=== PATIENT | male | born 1975 | race Caucasian/White ===

== ENCOUNTER 2023-02-16 12:59 | Inpatient (IN) | payer OTHER ==
[2023-02-16 13:18] VITALS: BMI 21.8
[2023-02-16] MEDS ORDERED: NICOTINE 10 MG CARTRIDGE (INHALER) IH PRN (16:23)
[2023-02-16] MEDS ORDERED: guaiFENesin 600 MG TABLET.ER (FP) PO PRN (16:23)
[2023-02-16] MEDS ORDERED: MAG HYDROX/AL HYDROX/SIMETH 30 ML UNIT-DOSE CUP PO PRN (16:23)
[2023-02-16] MEDS ORDERED: LOPERAMIDE HCL 2 MG CAPSULE PO PRN (16:23)
[2023-02-16] MEDS ORDERED: DICYCLOMINE HCL 10 MG CAPSULE PO PRN (16:23)
[2023-02-16] MEDS ORDERED: BENZONATATE 200 MG CAPSULE PO PRN (16:23)
[2023-02-16] MEDS ORDERED: IBUPROFEN 400 MG TABLET (FP) PO PRN (16:23)
[2023-02-16] MEDS ORDERED: AMMONIUM LACTATE 12% LOTION 225 GM BOTTLE TP PRN (16:23)
[2023-02-16] MEDS ORDERED: NALOXONE HCL (KLOXXADO) 8 MG SPRAY NS PRN (16:23)
[2023-02-16] MEDS ORDERED: POLYETHYLENE GLYCOL (HEALTHYLAX) 3350 17 GM PACKET PO PRN (16:23)
[2023-02-16] MEDS ORDERED: BENZOCAINE/MENTHOL (CHLORASEPTIC ) LOZENGE MM PRN (16:23)
[2023-02-16] MEDS ORDERED: ONDANSETRON *ODT* 4 MG TABLET SL PRN (16:23)
[2023-02-16] MEDS ORDERED: MAGNESIUM HYDROX 2400MG/30ML ORAL SUSPENSION 30 ML CUP PO PRN (16:23)
[2023-02-16] MEDS ORDERED: BISMUTH SUBSALICYLATE 524 MG/30 ML PO PRN (16:23)
[2023-02-16] MEDS ORDERED: COLLOIDAL OATMEAL 1 BAR EACH TP PRN (16:23)
[2023-02-16] MEDS ORDERED: NALOXONE HCL 0.4 MG/ML VIAL IM PRN (16:23)
[2023-02-16] MEDS: diazePAM 5 MG TABLET PO SCH ×2 (18:00→23:00)
[2023-02-16] MEDS: NICOTINE 21 MG/24 HOURS TOPICAL PATCH TD SCH (19:04)
[2023-02-16] MEDS: NICOTINE POLACRILEX 2 MG GUM BUC PRN ×2 (19:05→22:55)
[2023-02-16] MEDS: IBUPROFEN 600 MG TABLET (FP) PO PRN (19:07)
[2023-02-16] MEDS: THIAMINE HCL 100 MG TABLET (FP) PO SCH (22:54)
[2023-02-16] MEDS: MELATONIN 5 MG TABLETS PO SCH (22:54)
[2023-02-16] MEDS: METHOCARBAMOL 500 MG TABLET PO PRN (22:57)
[2023-02-17] MEDS: diazePAM 5 MG TABLET PO SCH ×4 (05:39→22:55)
[2023-02-17] MEDS: NICOTINE POLACRILEX 2 MG GUM BUC PRN ×2 (05:45→18:24)
[2023-02-17] MEDS: PRENATAL VITAMINS W/ FOLIC ACID TABLET (FP) PO SCH (10:03)
[2023-02-17] MEDS: NICOTINE 21 MG/24 HOURS TOPICAL PATCH TD SCH (10:03)
[2023-02-17] MEDS ORDERED: methaDONE HCL 10 MG TABLET (FOR DETOX USE ONLY) PO SCH (10:15)
[2023-02-17 11:42] LABS: POTASSIUM 4.9 mmol/L (3.5-5.1)
[2023-02-17 11:45] LABS: HEMATOCRIT 37.5 % (35.4-49); MCH 31.5 pg (25.7-33.7); MCHC 34.7 g/dl (32.0-35.9); MEAN CELL VOLUME 90.6 fl (80-96); MEAN PLT VOLUME 8.5 fl (7.5-11.1); PLATELET COUNT 278 10^3/uL (134-434); RBC 4.14 M/mm3 (4.00-5.60); RDW 12.5 % (11.9-15.9); WHITE BLOOD COUNT 4.9 K/mm3 (4.0-10.0)
[2023-02-17 11:54] LABS: ALBUMIN 3.9 g/dl (3.4-5.0); BLOOD UREA NITROGEN 16.6 mg/dL (7-18); CALCIUM 9.8 mg/dL (8.5-10.1)
[2023-02-17 11:58] LABS: CREATININE 0.9 mg/dL (0.55-1.3)
[2023-02-17 12:01] LABS: BILIRUBIN,TOTAL 0.5 mg/dL (0.2-1)
[2023-02-17] MEDS: diazePAM 5 MG TABLET PO PRN ×2 (13:07→20:03)
[2023-02-17] MEDS: THIAMINE HCL 100 MG TABLET (FP) PO SCH (22:54)
[2023-02-17] MEDS: MELATONIN 5 MG TABLETS PO SCH (22:54)
[2023-02-18] MEDS: diazePAM 5 MG TABLET PO PRN ×4 (01:10→22:16)
[2023-02-18] MEDS: IBUPROFEN 600 MG TABLET (FP) PO PRN ×2 (01:10→11:37)
[2023-02-18] MEDS ORDERED: PATIENT'S OWN MEDICATION (NON-FORMULARY) (Methadone Hcl [Methadone Hcl] 10 MG/ML Oral.Conc PO SCH (06:00)
[2023-02-18] MEDS: diazePAM 5 MG TABLET PO SCH ×3 (06:27→22:18)
[2023-02-18] MEDS: NICOTINE POLACRILEX 2 MG GUM BUC PRN ×3 (08:42→15:31)
[2023-02-18] MEDS: NICOTINE 21 MG/24 HOURS TOPICAL PATCH TD SCH (10:01)
[2023-02-18] MEDS: PRENATAL VITAMINS W/ FOLIC ACID TABLET (FP) PO SCH (10:01)
[2023-02-18] MEDS: METHOCARBAMOL 500 MG TABLET PO PRN (11:37)
[2023-02-18] MEDS: MELATONIN 5 MG TABLETS PO SCH (22:14)
[2023-02-18] MEDS: THIAMINE HCL 100 MG TABLET (FP) PO SCH (22:17)
[2023-02-19] MEDS: IBUPROFEN 600 MG TABLET (FP) PO PRN (05:13)
[2023-02-19] MEDS: METHOCARBAMOL 500 MG TABLET PO PRN (05:13)
[2023-02-19] MEDS ORDERED: diazePAM 5 MG TABLET PO SCH (06:00)
[2023-02-19] MEDS: diazePAM 5 MG TABLET PO PRN (06:59)
[2023-02-19] MEDS: NICOTINE POLACRILEX 2 MG GUM BUC PRN (08:53)
[2023-02-19 10:02] VITALS: BP 104/54; PULSE 54; RESP 18; TEMP 97.3
[2023-02-19] MEDS: NICOTINE 21 MG/24 HOURS TOPICAL PATCH TD SCH (10:34)
[2023-02-19] MEDS: PRENATAL VITAMINS W/ FOLIC ACID TABLET (FP) PO SCH (10:34)
[2023-02-20] MEDS ORDERED: diazePAM 5 MG TABLET PO ONE (06:00)
== END 2023-02-19 10:26 | disposition home or self-care (01) | DRG 773 ==
LOC: YASAS 12:59 → Y6N 16:42
PROVIDERS: ADMIT Allergy & Immunology; ATTEND Surgery
PROC: HZ2ZZZZ Detoxification Services for Substance Abuse Treatment (ICD-10-PCS; principal; 2023-02-16)
DX: F13.230 Sedative, hypnotic or anxiolytic dependence with withdrawal, uncomplicated (principal); F11.20 Opioid dependence, uncomplicated; F12.20 Cannabis dependence, uncomplicated; F17.210 Nicotine dependence, cigarettes, uncomplicated; F19.282 Other psychoactive substance dependence with psychoactive substance-induced sleep disorder; F41.8 Other specified anxiety disorders; S83.91XD Sprain of unspecified site of right knee, subsequent encounter; W19.XXXD Unspecified fall, subsequent encounter; Z88.6 Allergy status to analgesic agent; Z91.013 Allergy to seafood; Z56.0 Unemployment, unspecified; Z59.00 Homelessness unspecified
CPT/HCPCS: 36415; 80053; 85027; 86780; 87811; C9803-CS; U0003; U0005